=== PATIENT | male | born 1965 | race Caucasian/White ===

== ENCOUNTER 2018-02-26 05:47 | Observation (INO) ==
[2018-02-26] MEDS ORDERED: Ondansetron 4 MG/2 ML VIAL IVP ONE (06:08)
[2018-02-26] MEDS ORDERED: diazePAM 5 MG TABLET PO ONE (06:09)
--- NOTE | 2018-02-26 06:13 | Emergency Department Note ---
Disposition Clinical Impression: Vertigo Hypertension Qualifiers: Hypertension type: unspecified Qualified Code(s): I10 - Essential (primary) hypertension Disposition: Still a Patient Condition: Fair Referrals: Shreya Whitt CNP [Primary Care Provider] - Forms: ED Satisfaction Letter Dizziness HPI - General Chief Complaint: ED Dizziness Stated Complaint: dizziness Time Seen by Provider: 02/26/18 05:51 Source: patient Mode of arrival: ambulatory Limitations: no limitations Nursing Notes Reviewed: Yes Vital Signs Reviewed: Yes - History of Present Illness HPI Narrative: 52-year-old male with a history of CABG, hypertension presents for evaluation of dizziness. Dizziness started upon awakening this morning. Patient noted when he got up he felt like the room is spinning. Symptoms resolved when he lays down. Patient states that he did have some nausea vomiting associated with the dizziness. Patient states that he attempted and related to the bathroom but felt dizzy. Patient denies history of this in the past. Patient denies any fevers. No abdominal pain. Patient denies any focal neurologic weakness. Patient did have isolated hand tingling. Patient denied any chest pain or shortness of breath but states he has had felt shortness of breath the past. Denies any tinnitus/hearing loss. Patient states that he felt well last night. 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 Patient denies any history of strokes. Denies any recent changes in medications. Patient did not take his blood pressure medication earlier today. - Related Data Home Medications Medication Instructions Recorded Confirmed Albuterol Sulfate [Proair Hfa] 2 puff IH Q4H 12/31/15 03/30/16 Aspirin [Adult Low Dose Aspirin EC] 81 mg PO DAILY 12/31/15 03/30/16 Atorvastatin Calcium [Lipitor] 80 mg PO HS 12/31/15 03/30/16 Tamsulosin HCl [Flomax] 0.4 mg PO DAILY 12/31/15 03/30/16 amLODIPine [Norvasc] 5 mg PO DAILY 04/08/16 04/08/16 Allergies Allergy/AdvReac Type Severity Reaction Status Date / Time No Known Allergies Allergy Verified 10/29/15 17:06 All systems ED: reviewed and negative except as stated. Constitutional: Denies: fever Cardiovascular: Denies: chest pain Respiratory: Reports: dyspnea. Denies: cough Gastrointestinal: Reports: nausea, vomiting. Denies: abdominal pain Past Medical History - Past Medical History Source: patient Medical history: Reports: COPD, coronary artery disease, hyperlipidemia, hypertension, myocardial infarction Surgical history: Reports: angioplasty/stent, appendectomy, coronary bypass ( CABG) Psychiatric history: Reports: no psych history - Social History Smoking Status: Former smoker Smokeless Tobacco Status: No Alcohol use: Reports: occasionally Drug use: Reports: none Physical Exam - General Limitations: no limitations - Head Head exam: atraumatic, normocephalic, normal inspection - Eye Eye exam: Present: normal appearance, PERRL, EOMI, other (Horizontal left beating nystagmus.) - ENT ENT exam: normal exam, normal oropharynx, mucous membranes moist - Neck Neck exam: Present: normal inspection - Chest Chest inspection: Present: normal inspection, symmetric chest wall rise - Respiratory Respiratory exam: Present: normal lung sounds bilaterally. Absent: respiratory distress - Cardiovascular Cardiovascular exam: Present: regular rate, normal rhythm. Absent: systolic murmur - Abdominal Exam Abdominal exam: Present: soft, Non-Tender - Extremities Exam Extremities exam: Present: normal inspection. Absent: pedal edema - Back Exam Back exam: Present: normal inspection - Neurological Exam Neurological exam: Present: alert, oriented X3, CN II-XII intact - Expanded Neurological Exam Patient oriented to: Present: person, place, time Speech: Present: fluid speech Cranial nerves: EOM function (II, III, IV, ): Normal, facial sensation (V): Normal, facial palsy (VII): Normal, spinal accessory function (XI): Normal, tongue deviation (XII): Normal Cerebellar function: finger to nose: Normal Motor strength - LUE: 5/5 Motor strength - RUE: 5/5 Motor strength - LLE: 5/5 Motor strength - RLE: 5/5 Upper motor neuron exam: pronator drift: Absent bilaterally Sensory exam upper extremity: light touch: Normal Sensory exam lower extremity: light touch: Normal Coma Scale Eye Opening: Spontaneous Coma Scale Motor Response: Obeys Commands Coma Scale Verbal Response: Oriented Coma Scale Total: 15 - Skin Skin exam: Present: warm, dry, intact, normal color Course Course Narrative: Patient seen and examined. Patient appears be no acute distress. Patient is symptomatic with sitting up. Symptoms resolved when lying down. Patient has a very positional component to his vertigo. Patient has no focal neurologic deficits on exam. Patient will get basic cardiopulmonary screening evaluation with EKG, chest x-ray troponin. Patient also be treated symptomatically with Zofran anti-medics and Valium. Disposition pending. - Reevaluation(s) Reevaluation #1: Patient seen and noted that symptoms still persist with movement. If symptoms continue, patient may need further evaluation with advanced imaging. Time: 07:07 Vital Signs Temperature 97.7 F 02/26/18 05:52 Pulse Rate 55 02/26/18 05:52 Respiratory Rate 14 02/26/18 05:52 Blood Pressure 172/108 02/26/18 05:52 O2 Sat by Pulse Oximetry 100 02/26/18 05:52 Temperature 97.7 F 02/26/18 05:52 Pulse Rate 55 02/26/18 05:52 Respiratory Rate 14 02/26/18 05:52 Blood Pressure 172/108 02/26/18 05:52 O2 Sat by Pulse Oximetry 100 02/26/18 05:52 Oxygen Delivery Oxygen Delivery Room Air Dizziness - Lab Data Result diagrams: 02/26/18 06:10 02/26/18 06:10 Lab Results 02/26/18 02/26/18 Range/Units 06:10 06:10 WBC 6.3 (4.3-11.1) K/mcL RBC 4.54 (4.19-5.50) M/mcL Hgb 13.9 (12.9-16.9) g/dL Hct 41.4 (37.5-50.1) % MCV 91.2 (83.0-100.0) fL MCH 30.6 (28.0-33.3) pg MCHC 33.6 (31.6-35.5) g/dL RDW 11.9 (11.5-14.5) % Plt Count 204 (140-400) K/mcL MPV 9.1 L (9.4-12.4) fL Immature Gran % 0.6 (0-4) % Seg Neutrophils % 60.8 % Lymphocytes % 26.3 % Monocytes % 7.3 % Eosinophils % 4.4 % Basophils % 0.6 % Neutrophils # 3.8 (1.6-8.9) K/mcL Lymphocytes # 1.7 (0.6-4.6) K/mcL Monocytes # 0.5 (0.0-1.3) K/mcL Eosinophils # 0.3 (0.0-0.6) K/mcL Basophils # 0.0 (0.0-0.2) K/mcL Sodium 139 (136-145) mEq/L Potassium 4.3 (3.5-5.1) mEq/L Chloride 105 (98-107) mEq/L Carbon Dioxide 26 (23-29) mEq/L BUN 20 (6-20) mg/dL Creatinine 1.06 (0.70-1.30) mg/dL Est GFR ( Amer) > 60 (> 60) Est GFR (Non-Af Amer) > 60 (> 60) BUN/Creatinine Ratio 19 (6-26) Glucose 99 (70-105) mg/dL Calculated Osmolality 291 (280-300) Calcium 9.4 (8.6-10.3) mg/dL Troponin I < 0.03 (< 0.04) ng/mL - EKG Data EKG attestation: Yes I reviewed and interpreted this EKG. EKG shows normal: sinus rhythm Rate: bradycardia Rhythm: NSR Mission/QRS: normal Interpretation: no acute changes S.B.A.Bryant - Reema.Thomas.Raquel Situation: Demographics Background: Presenting Complaint Assessment: Vital Signs, Course and respsone to treatment, Patient/Family Expectation Recommendation: Barrier(s) to disposition, Recommendation based on pending studies, treatments, or consults S.B.A.Bryant Report Given to: Dr. Julio Arreola Repor Time: 07:00
[2018-02-26 06:23] LABS: Basophils % 0.6 %; Eosinophils # 0.3 K/mcL (0.0-0.6); Eosinophils % 4.4 %; Hematocrit 41.4 % (37.5-50.1); Hemoglobin 13.9 g/dL (12.9-16.9); Immature Granulocytes % 0.6 % (0-4); Lymphocytes # 1.7 K/mcL (0.6-4.6); Lymphocytes % 26.3 %; Mean Corpuscular HGB Conc 33.6 g/dL (31.6-35.5); Mean Corpuscular Hemoglobin 30.6 pg (28.0-33.3); Mean Corpuscular Volume 91.2 fL (83.0-100.0); Mean Platelet Volume 9.1 fL (9.4-12.4); Monocytes # 0.5 K/mcL (0.0-1.3); Monocytes % 7.3 %; Neutrophils # 3.8 K/mcL (1.6-8.9); Platelet Count 204 K/mcL (140-400); Red Blood Count 4.54 M/mcL (4.19-5.50); Red Cell Distribution Width 11.9 % (11.5-14.5); Segmented Neutrophils % 60.8 %
[2018-02-26 06:41] LABS: Troponin I < 0.03 ng/mL (< 0.04)
[2018-02-26 06:47] LABS: BUN/Creatinine Ratio 19 (6-26); Blood Urea Nitrogen 20 mg/dL (6-20); Calcium 9.4 mg/dL (8.6-10.3); Carbon Dioxide 26 mEq/L (23-29); Chloride 105 mEq/L (98-107); Glucose 99 mg/dL (70-105); Osmolality,Calculated 291 (280-300); Potassium 4.3 mEq/L (3.5-5.1); Sodium 139 mEq/L (136-145); eGFR For African Americans > 60 (> 60); eGFR For Non-African Americans > 60 (> 60)
--- NOTE | 2018-02-26 07:14 | Emergency Department Note ---
Disposition Clinical Impression: Vertigo Hypertension Qualifiers: Hypertension type: unspecified Qualified Code(s): I10 - Essential (primary) hypertension Disposition: Still a Patient Condition: Fair Referrals: Shreya Whitt CNP [Primary Care Provider] - Forms: ED Satisfaction Letter General Adult HPI - General Chief complaint: ED Dizziness Stated complaint: dizziness Time Seen by Provider: 02/26/18 05:51 Source: patient Mode of arrival: ambulatory Limitations: no limitations Nursing Notes Reviewed: Yes Vital Signs Reviewed: Yes - History of Present Illness Pain Scale: 0 - Related Data Home Medications Medication Instructions Recorded Confirmed Albuterol Sulfate [Proair Hfa] 2 puff IH Q4H 12/31/15 03/30/16 Aspirin [Adult Low Dose Aspirin EC] 81 mg PO DAILY 12/31/15 03/30/16 Atorvastatin Calcium [Lipitor] 80 mg PO HS 12/31/15 03/30/16 Tamsulosin HCl [Flomax] 0.4 mg PO DAILY 12/31/15 03/30/16 amLODIPine [Norvasc] 5 mg PO DAILY 04/08/16 04/08/16 Allergies Allergy/AdvReac Type Severity Reaction Status Date / Time No Known Allergies Allergy Verified 10/29/15 17:06 Constitutional: Denies: fever Cardiovascular: Denies: chest pain Respiratory: Reports: dyspnea. Denies: cough Gastrointestinal: Reports: nausea, vomiting. Denies: abdominal pain Past Medical History - Past Medical History Medical history: Reports: COPD, coronary artery disease, hyperlipidemia, hypertension, myocardial infarction Surgical history: Reports: angioplasty/stent, appendectomy, coronary bypass ( CABG) Psychiatric history: Reports: no psych history - Social History Smoking Status: Former smoker Smokeless Tobacco Status: No Alcohol use: Reports: occasionally Drug use: Reports: none Physical Exam - General Limitations: no limitations General appearance: alert Course Vital Signs Temperature 97.7 F 02/26/18 05:52 Pulse Rate 55 02/26/18 05:52 Respiratory Rate 14 02/26/18 05:52 Blood Pressure 172/108 02/26/18 05:52 O2 Sat by Pulse Oximetry 100 02/26/18 05:52 Temperature 97.7 F 02/26/18 05:52 Pulse Rate 55 02/26/18 05:52 Respiratory Rate 14 02/26/18 05:52 Blood Pressure 172/108 02/26/18 05:52 O2 Sat by Pulse Oximetry 100 02/26/18 05:52 Oxygen Delivery Oxygen Delivery Room Air Medical Decision Making - Lab Data Result diagrams: 02/26/18 06:10 02/26/18 06:10 Lab Results 02/26/18 02/26/18 Range/Units 06:10 06:10 WBC 6.3 (4.3-11.1) K/mcL RBC 4.54 (4.19-5.50) M/mcL Hgb 13.9 (12.9-16.9) g/dL Hct 41.4 (37.5-50.1) % MCV 91.2 (83.0-100.0) fL MCH 30.6 (28.0-33.3) pg MCHC 33.6 (31.6-35.5) g/dL RDW 11.9 (11.5-14.5) % Plt Count 204 (140-400) K/mcL MPV 9.1 L (9.4-12.4) fL Immature Gran % 0.6 (0-4) % Seg Neutrophils % 60.8 % Lymphocytes % 26.3 % Monocytes % 7.3 % Eosinophils % 4.4 % Basophils % 0.6 % Neutrophils # 3.8 (1.6-8.9) K/mcL Lymphocytes # 1.7 (0.6-4.6) K/mcL Monocytes # 0.5 (0.0-1.3) K/mcL Eosinophils # 0.3 (0.0-0.6) K/mcL Basophils # 0.0 (0.0-0.2) K/mcL Sodium 139 (136-145) mEq/L Potassium 4.3 (3.5-5.1) mEq/L Chloride 105 (98-107) mEq/L Carbon Dioxide 26 (23-29) mEq/L BUN 20 (6-20) mg/dL Creatinine 1.06 (0.70-1.30) mg/dL Est GFR ( Amer) > 60 (> 60) Est GFR (Non-Af Amer) > 60 (> 60) BUN/Creatinine Ratio 19 (6-26) Glucose 99 (70-105) mg/dL Calculated Osmolality 291 (280-300) Calcium 9.4 (8.6-10.3) mg/dL Troponin I < 0.03 (< 0.04) ng/mL Attestation Statement - Attestation Attestation: I, Jared Ovalles MD, personally evaluated this patient and discussed their management with the resident physician. I reviewed the resident's note and agree with the documented findings, medical decision making, and plan of care. 52-year-old male presents to the emergency department with a complaint of dizziness since he awoke this morning. He states he woke up and when he went to get out of bed and everything was spinning and moving and he is soft balance. He had nausea and vomiting. These symptoms have continued since then. Symptoms are worse with sitting up or trying to stand or move around and are improved with lying still with his eyes closed. He denies any headache. No tinnitus. No prior history of similar episodes. On examination patient is a well-developed well-nourished well-appearing male in no acute distress. He is alert and oriented 3. There is no cyanosis or diaphoresis. No nystagmus noted at time of my examination. Neck is supple and nontender with no lymphadenopathy. No meningismus. Breath sounds clear and equal bilaterally. Heart regular rate and rhythm. Abdomen soft and nontender with normal bowel sounds. No gross focal neurological deficits. Labs reviewed and unremarkable. Chest x-ray negative. EKG shows sinus bradycardia with ventricular rate of 56. No ST segment elevation or depression noted. No ectopy. At shift change patient is signed out to the oncoming dayshift team, Dr. Kim and Dr. Eric Painter.
--- NOTE | 2018-02-26 08:37 | Emergency Department Note ---
Disposition Clinical Impression: Vertigo Disposition: Admitted As Inpatient Condition: Fair Time of Disposition: 08:37 General Adult HPI - General Chief complaint: ED Dizziness Stated complaint: dizziness Time Seen by Provider: 02/26/18 05:51 Source: patient Mode of arrival: ambulatory Limitations: no limitations Nursing Notes Reviewed: Yes Vital Signs Reviewed: Yes - History of Present Illness Pain Scale: 0 - Related Data Home Medications Medication Instructions Recorded Confirmed Albuterol Sulfate [Proair Hfa] 2 puff IH Q4H 12/31/15 02/26/18 Atorvastatin Calcium [Lipitor] 80 mg PO HS 12/31/15 02/26/18 Tamsulosin HCl [Flomax] 0.4 mg PO DAILY 12/31/15 02/26/18 Aspirin [Lo-Dose Aspirin EC] 81 mg PO DAILY 02/26/18 02/26/18 Isosorbide MONOnitrate (24 HR) 60 mg PO DAILY 02/26/18 02/26/18 [Imdur] Losartan Potassium [Cozaar] 100 mg PO DAILY 02/26/18 02/26/18 Allergies Allergy/AdvReac Type Severity Reaction Status Date / Time No Known Allergies Allergy Verified 02/26/18 09:14 Constitutional: Denies: fever Cardiovascular: Denies: chest pain Respiratory: Reports: dyspnea. Denies: cough Gastrointestinal: Reports: nausea, vomiting. Denies: abdominal pain Past Medical History - Past Medical History Medical history: Reports: COPD, coronary artery disease, hyperlipidemia, hypertension, myocardial infarction Surgical history: Reports: angioplasty/stent, appendectomy, coronary bypass ( CABG) Psychiatric history: Reports: no psych history - Social History Smoking Status: Former smoker Smokeless Tobacco Status: No Alcohol use: Reports: occasionally Drug use: Reports: none Physical Exam - General Limitations: no limitations General appearance: alert Course Course Narrative: Patient transferred to our team's care in sign out. The patient is a 52-year- old male the past medical history of [place] presents with complaint of dizziness that started at 5 AM this morning upon awakening. The patient states that since awakening experiencing room spinning around him vertigo-like dizziness. He has had mild improvement with the medications given today. Given his atypical symptoms and not complete resolution with medicine plan at this time is admitted to the hospital with a consult to neurology for MRI and further workup of his symptoms. Discussed these plans with the patient and he agrees. Vital Signs Temperature 97.7 F 02/26/18 05:52 Pulse Rate 55 02/26/18 05:52 Respiratory Rate 14 02/26/18 05:52 Blood Pressure 172/108 02/26/18 05:52 O2 Sat by Pulse Oximetry 100 02/26/18 05:52 Temperature 98.0 F 02/26/18 10:26 Pulse Rate 60 02/26/18 10:26 Respiratory Rate 18 02/26/18 10:26 Blood Pressure 143/86 02/26/18 10:26 O2 Sat by Pulse Oximetry 98 02/26/18 10:26 Oxygen Delivery Oxygen Delivery Room Air Medical Decision Making - Medical Records Medical records reviewed: Yes I reviewed the patient's medical records. - Lab Data Lab results reviewed: Yes I reviewed the patient's lab results. Result diagrams: 02/26/18 06:10 02/26/18 06:10 Lab Results 02/26/18 02/26/18 Range/Units 06:10 06:10 WBC 6.3 (4.3-11.1) K/mcL RBC 4.54 (4.19-5.50) M/mcL Hgb 13.9 (12.9-16.9) g/dL Hct 41.4 (37.5-50.1) % MCV 91.2 (83.0-100.0) fL MCH 30.6 (28.0-33.3) pg MCHC 33.6 (31.6-35.5) g/dL RDW 11.9 (11.5-14.5) % Plt Count 204 (140-400) K/mcL MPV 9.1 L (9.4-12.4) fL Immature Gran % 0.6 (0-4) % Seg Neutrophils % 60.8 % Lymphocytes % 26.3 % Monocytes % 7.3 % Eosinophils % 4.4 % Basophils % 0.6 % Neutrophils # 3.8 (1.6-8.9) K/mcL Lymphocytes # 1.7 (0.6-4.6) K/mcL Monocytes # 0.5 (0.0-1.3) K/mcL Eosinophils # 0.3 (0.0-0.6) K/mcL Basophils # 0.0 (0.0-0.2) K/mcL Sodium 139 (136-145) mEq/L Potassium 4.3 (3.5-5.1) mEq/L Chloride 105 (98-107) mEq/L Carbon Dioxide 26 (23-29) mEq/L BUN 20 (6-20) mg/dL Creatinine 1.06 (0.70-1.30) mg/dL Est GFR ( Amer) > 60 (> 60) Est GFR (Non-Af Amer) > 60 (> 60) BUN/Creatinine Ratio 19 (6-26) Glucose 99 (70-105) mg/dL Calculated Osmolality 291 (280-300) Calcium 9.4 (8.6-10.3) mg/dL Troponin I < 0.03 (< 0.04) ng/mL - Radiology Data Radiology results reviewed: Yes I reviewed the patient's radiology results. Chest X-Ray 02/26/18 06:08 IMPRESSION: Negative portable chest. D/ / Shant Carbajal MD / Shant Carbajal MD Interpreting Provider: Shant Carbajal MD Brain MRI 02/26/18 08:18 IMPRESSION: Cerebral atrophy. Mild chronic small vessel ischemic changes. There are no areas of restricted diffusion to suggest an acute ischemic event. D/ / 02/26/2018 11:29:46 Mague Kamara MD / rani Interpreting Provider: Mague Kamara MD S.BCarmelo - S.B.A.RDevonte Situation: Demographics, MOA Background: Presenting Complaint, Relevant PMH, Meds, & Allergies Assessment: Vital Signs, Course and respsone to treatment, Exam Concerns, Patient/Family Expectation, Pertinant Lab Results, Outstanding Labs Recommendation: Barrier(s) to disposition, Recommendation based on pending studies, treatments, or consults S.B.A.R. Report Given to: Dr. Kim and Dr. Painter SArleth Repor Time: 11:48 Attestation Statement - Attestation Attestation: I, Eric Painter, examined this patient and my medical decision-making was reviewed with the REGIONAL EDUCATION COORDINATOR/PA/Advanced Practice Nurse/Resident Physician. I agree with the documented findings, disposition and treatment plan as described except to the extent set forth below. 52-year-old male presents emergency Department with concerns of vertigo. Patient was received in sign out at 7 AM pending reevaluation and disposition. Patient states his symptoms have been constant since their onset this morning. He reports left upper extremity paresthesias and weakness. Patient has no focal neurologic deficits on examination emergency department. No history of similar symptoms in the past. Patient will be admitted to hospitalist for further care and evaluation of possible central causes of vertigo. Patient comfortable with this plan of action.
[2018-02-26] MEDS ORDERED: diazePAM 2 MG TABLET PO PRN (11:50)
--- NOTE | 2018-02-26 13:11 | Neurology - Consult Note ---
Date of Encounter: 02/26/18 Time of Encounter: 13:05 Assessment and Plan (1) Vertigo Current Visit: Yes Status: Acute Patient developed acute onset of vertigo lasting few hours in duration with transient nausea with full resolution, in the setting of elevated blood pressure , patient has no hearing loss, no tinnitus or other otologic symptoms and his neurological examination is normal. In particular, he has no nystagmus and no hearing difficulty. Therefore would think that his symptoms are mostly related elevated BP. he does have increased risk of cerebral vascular events due to HTN , SHEREE, obesity and i would recommend CTA of neck and head to evaluate posterior circulation TIA. echo and carotid artery duplex. Agree with Aspirn 81mg daily and statin therapy. Patient has recent diagnosis of SHEREE and is waiting to start CPAP therapy. Total time spent in this case is approximately 50 minutes History of Present Illness Chief complaint: Dizziness HPI: Mr. John is a 52 year old male with PMH significant for HTN, CAD, obesity and sleep apnea who developed an acute episode of dizziness, nausea and balance difficulty. Patient states that this morning he woke up early suppose to go to work at 5am when he got up he felt vertiginous and had to go back lay done. He tried few times to get up walking and he could not because he balance was off. He also felt slightly nauseated in the beginning. took his blood pressure and it was above 150/100' which is not normal for him. Usually the BP is in 110' s/80's. The dizziness persisted for about few hours and at the ER he was given Meclizine and then the dizziness finally resolved. Now he feels much better and back to baseline. First episode of this type. He denies tinnitus, hearing loss MRI of brain completed and showed no acute intracranial abnormality. Past Med Surg Social Fam HX - Past Medical History Medical history: COPD, coronary artery disease, hyperlipidemia, hypertension, myocardial infarction Psychiatric history: no psych history - Past Surgical History Surgical History: angioplasty/stent, appendectomy, coronary bypass (CABG) Additional surgical history: CABG 01/03 - Social History Smoking Status: Former smoker Smokeless Tobacco Status: No Alcohol use: occasionally Drug use: none - Family History Father Living Status: Still Living Hx Family Cardiac Disorders: Yes (father,mother,self) Hx Family Respiratory Disorders: Yes (self) Hx Family Cancer: No Hx Family GI Disorders: No Hx Family Endocrine Disorder: No Hx Family Neuromuscular Disorders: Yes (mother) Hx Family Neurologic Disorders: Yes (mother) Hx Family HEENT Disorders: No Hx Family Autoimmune Disorders: No Medications and Allergies Albuterol Sulfate [Proair Hfa] 2 puff IH Q4H 12/31/15 [History] Atorvastatin Calcium [Lipitor] 80 mg PO HS 12/31/15 [History] Tamsulosin HCl [Flomax] 0.4 mg PO DAILY 12/31/15 [History] Aspirin [Lo-Dose Aspirin EC] 81 mg PO DAILY 02/26/18 [History] Isosorbide MONOnitrate (24 HR) [Imdur] 60 mg PO DAILY 02/26/18 [History] Losartan Potassium [Cozaar] 100 mg PO DAILY 02/26/18 [History] 3 Allergy/AdvReac Type Severity Reaction Status Date / Time No Known Allergies Allergy Verified 02/26/18 09:14 All Systems: The remainder of the systems were reviewed and are negative Physical Examination - Vital Signs Vital Signs: Initial Vital Signs Temp Pulse Resp BP Pulse Ox 97.7 F 55 14 172/108 100 02/26/18 05:52 02/26/18 05:52 02/26/18 05:52 02/26/18 05:52 02/26/18 05:52 - Constitutional General appearance: comfortable - Neurologic Detailed motor examination: full strength in all major muscle groups Motor examination - right side: 5/5: deltoids, biceps, triceps, wrist flexion, wrist extension, box tender, hip flexors, tibialis Anterior, quadriceps, toe extension (EHL), plantarflexion Motor examination - left side: 5/5: deltoids, biceps, triceps, wrist flexion, wrist extension, hip flexors, box tender, quadriceps, tibialis Anterior, toe extension (EHL), plantarflexion Mental Status Examination: awake, alert, oriented to person, oriented to place, oriented to time, follows commands appropriately, answers questions appropriately, no agnosia, no aphasia, no aproxia Cranial nerve examination: PERRL, EOMI, visual [place] intact, corneal reflexes brisk symmetrically, sensory to face intact, mastication intact, no facial asymmetry is present, no dysarthria, hearing is intact symmetrically, soft palate elevates bilaterally upon phonation, gag reflex intact, flexes SCM and trapezius muscles symmetrically with full power, tongue protrudes midline, no atrophy or facial fasiculations present Cerebellar examination: no dysmetria, performs finger to nose and heel to clark symmetrically without ataxia, no gait ataxia, no truncal ataxia, no difficulty with rapid alternating movements Results - Laboratory Findings CBC and BMP: 02/26/18 06:10 02/26/18 06:10 Abnormal lab findings: Abnormal lab results MPV 9.1 fL (9.4-12.4) L 02/26/18 06:10 Consult Discharge Plan - Plan Referrals: Shreya Whitt, [facility] [Primary Care Provider] -
[2018-02-26] MEDS ORDERED: Isovue-370 500 ML INFUS..BTL IV ONE (13:17)
--- NOTE | 2018-02-26 18:27 | Internal Med History&Physical ---
Date of Encounter: 02/26/18 Time of Encounter: 11:00 Internal Medicine - H&P: HPI Admitted From: Home Plans for Post Hospital Care: Home History of present illness: Mr. John is a 52 year old male.He has had underlying Coronary artery disease, hypertension, hyperlipidemia, COPD and BPH. His alarm clock woke him as usually has 4 AM. After getting up he noticed severe "spinning"; has extreme difficulty walking. Those symptoms forced him back to his bed. A little bit later he vomited twice. He had a lot of "spinning", when moving his head to sides; also when he is eyes were moving to sides. He continued to be symptomatic in the emergency room. They gave him 25 mg of oral meclizine. His symptoms basically subsided by 11 AM. His coronary artery disease and hypertension seem to be under good control. Past Med Surg Social Fam HX - Past Medical History Medical history: COPD, coronary artery disease, hyperlipidemia, hypertension, myocardial infarction Additional medical history: BPH. Psychiatric history: no psych history - Past Surgical History Surgical History: angioplasty/stent, appendectomy, coronary bypass (CABG) Additional surgical history: CABG 01/03 - Social History Smoking Status: Former smoker Smokeless Tobacco Status: No Alcohol use: occasionally Drug use: none - Family History Father Living Status: Still Living Hx Family Cardiac Disorders: Yes (father,mother,self) Hx Family Respiratory Disorders: Yes (self) Hx Family Cancer: No Hx Family GI Disorders: No Hx Family Endocrine Disorder: No Hx Family Neuromuscular Disorders: Yes (mother) Hx Family Neurologic Disorders: Yes (mother) Hx Family HEENT Disorders: No Hx Family Autoimmune Disorders: No Internal Medicine - H&P: Meds Albuterol Sulfate [Proair Hfa] 2 puff IH Q4H 12/31/15 [History] Atorvastatin Calcium [Lipitor] 80 mg PO HS 12/31/15 [History] Tamsulosin HCl [Flomax] 0.4 mg PO DAILY 12/31/15 [History] Aspirin [Lo-Dose Aspirin EC] 81 mg PO DAILY 02/26/18 [History] Isosorbide MONOnitrate (24 HR) [Imdur] 60 mg PO DAILY 02/26/18 [History] Losartan Potassium [Cozaar] 100 mg PO DAILY 02/26/18 [History] 3 Allergy/AdvReac Type Severity Reaction Status Date / Time No Known Allergies Allergy Verified 02/26/18 09:14 All Systems PM: A 10-system review of systems was performed and is negative for pertinent findings except as documented above in the HPI. - Constitutional Vitals: Temp Pulse Resp BP Pulse Ox 98.0 F 58 18 115/73 98 02/26/18 17:14 02/26/18 17:14 02/26/18 17:14 02/26/18 17:14 02/26/18 17:14 General appearance: Present: A&O X 3, no acute distress, answers questions appropriately - Eye Eye exam: Present: normal appearance. Absent: conjunctival injection, periorbital swelling, scleral icterus - ENT ENT exam: Present: mucous membranes moist, normal external ear exam, normal oropharynx - Respiratory Respiratory exam: Present: CTAB. Absent: accessory muscle use, rales, rhonchi, wheezes - Cardiovascular Cardiovascular exam: Present: RRR, +S1, +S2. Absent: diastolic murmur, gallop, rubs, systolic murmur - GI/Abdominal GI/Abdominal exam: Present: normal bowel sounds, soft, no peritoneal signs. Absent: distended, tenderness - Neurological Exam Neurological exam: Present: CN II-XII intact, oriented X3, no focal deficits. Absent: pronater drift, facial droop, speech deficit - Skin Skin exam: Present: dry, intact Internal Med - H&P Results - Labs CBC & Chem 7: 02/26/18 06:10 02/26/18 06:10 - Impressions ITS Impressions Head CTA 02/26/18 13:17 IMPRESSION: 1. No acute intracranial abnormality. 2. 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 In addition there is circulation of the left [employer] D/ / 02/26/2018 14:32:31 Filipe Hurt MD / [facility] Interpreting Provider: Filipe Hurt MD Neck CTA 02/26/18 13:17 IMPRESSION: Mild atherosclerosis involving both proximal internal carotid arteries without hemodynamically significant stenosis. Hypoplastic right vertebral artery. 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 It subsided by 11 AM; received 25 mg of meclizine in emergency department. See below. (2) Acute viral labyrinthitis Current Visit: Yes Status: Acute Assessment and plan: This could be acute viral labyrinthitis. It got better after 25 mg of oral meclizine.MRI of brain is normal. My neurological exam did not reveal any abnormalities. We will keep him on oral meclizine at 25 mg 3 times a day. Will likely discharge him home tomorrow before 11 AM. Qualifiers: Laterality: unspecified laterality Qualified Code(s): H83.09 - Labyrinthitis, unspecified ear (3) CAD (coronary artery disease) Current Visit: Yes Status: Chronic Assessment and plan: It seems to be under control. We will continue him to Lipitor and enteric- coated aspirin. I will talk to him about beta blockers tomorrow at the time of discharge. Qualifiers: Coronary Disease-Associated Artery/Lesion type: [place] artery [place] vs. transplanted heart: [place] heart Associated angina: with unstable angina Qualified Code(s): I25.110 - Atherosclerotic heart disease of [place] coronary artery with unstable angina pectoris (4) HTN (hypertension) Current Visit: Yes Status: Chronic Assessment and plan: Seems to be under fair control. We will continue Cozaar. His checked his blood pressure and heart rate, when he was symptomatic. His systolic blood pressure was 154. His blood pressure from 10:26 AM is 143/86. Qualifiers: Hypertension type: essential hypertension Qualified Code(s): I10 - Essential (primary) hypertension - Time Spent With Patient Total time spent is greater than 50% in coordination of care (as documented) at patient's floor/unit and/or counseling patient: Greater than 35 minutes (40 minutes.)
[2018-02-27 03:36] LABS: Hematocrit 37.8 % (37.5-50.1); Hemoglobin 12.6 g/dL (12.9-16.9); Mean Corpuscular HGB Conc 33.3 g/dL (31.6-35.5); Mean Corpuscular Hemoglobin 30.3 pg (28.0-33.3); Mean Corpuscular Volume 90.9 fL (83.0-100.0); Mean Platelet Volume 9.2 fL (9.4-12.4); Platelet Count 171 K/mcL (140-400); Red Blood Count 4.16 M/mcL (4.19-5.50)
[2018-02-27 03:58] LABS: BUN/Creatinine Ratio 16 (6-26); Blood Urea Nitrogen 17 mg/dL (6-20); Calcium 8.6 mg/dL (8.6-10.3); Carbon Dioxide 29 mEq/L (23-29); Chloride 106 mEq/L (98-107); Glucose 98 mg/dL (70-105); Osmolality,Calculated 292 (280-300); Sodium 140 mEq/L (136-145); eGFR For African Americans > 60 (> 60); eGFR For Non-African Americans > 60 (> 60)
[2018-02-27] MEDS ORDERED: Isosorbide MONOnitrate (24 HR) 60 MG TAB.ER.24H PO SCH (09:00)
[2018-02-27] MEDS ORDERED: Aspirin Enteric Coated 81 MG Tablet PO SCH (09:00)
[2018-02-27 10:48] VITALS: BP 114/72
--- NOTE | 2018-02-27 15:15 | Discharge Summary ---
- NOTES TO OUTPATIENT PROVIDER Notes to Outpatient Provider: Pt was admitted for dizziness, n/v, vertigo that resolved with Meclizine in the ER. Pt was admitted for workup and left AmA, states that he had too much to do at home. He did not receive echo or carotid doppler results, nor did he receive his rx for Meclizine. Date of Encounter: 02/27/18 Time of Encounter: 09:45 - Discharge Diagnosis (1) Acute viral labyrinthitis Priority: Secondary Status: Suspected Assessment and Plan: Pt reports recent allergy symptoms with cough, URI symptoms. Viral etiology could contribute to dizziness, nausea, vomiting. Qualifiers: Laterality: unspecified laterality Qualified Code(s): H83.09 - Labyrinthitis, unspecified ear (2) Vertigo Priority: Secondary Status: Acute Assessment and Plan: Onset at 4 AM when patient comes to the bathroom. States that he did not make it to the bathroom without becoming dizzy, went back to bed. He came diaphoretic and vomited twice. Symptoms resolved approximately 7-8 hours later he was given meclizine in the emergency department. Physical exam is unremarkable, he has no neurological deficits. Patient had carotid Dopplers and echocardiogram done, however did not stay to find out the results. Patient signed out AGAINST MEDICAL ADVICE he did not receive a prescription for meclizine. Pt had also requested prescriptions for Claritin and Flonase for seasonal allergies which have become significantly worse over the last 3-4 weeks. Carotid Doppler showed nonstenotic plaque only in bilateral carotids. Echocardiogram showed an LVEF of 6060% with no evidence of PFO. Normal wall segment motion. Likely viral in etiology. (3) CAD (coronary artery disease) Priority: Secondary Status: Chronic Assessment and Plan: Chronic. Patient denied chest pain. Continue home medications after discharge. Qualifiers: Coronary Disease-Associated Artery/Lesion type: [place] artery [place] vs. transplanted heart: [place] heart Associated angina: with unstable angina Qualified Code(s): I25.110 - Atherosclerotic heart disease of [place] coronary artery with unstable angina pectoris (4) HTN (hypertension) Priority: Secondary Status: Chronic Assessment and Plan: Chronic. Continue home medications. Qualifiers: Hypertension type: essential hypertension Qualified Code(s): I10 - Essential (primary) hypertension Hospital course: Mr. John is a 52 year old male with past medical history of coronary artery disease and hypertension. Patient was admitted for dizziness, nausea, vomiting , diaphoresis. Chest x-ray was negative, brain MRI was negative for acute, there is some cerebral atrophy and mild chronic small vessel ischemic changes. Around that showed nonstenotic plaque bilaterally. CTA head shows no acute abnormality of the neck CTA shows mild atherosclerosis involving both proximal internal carotid arteries without hemodynamically significant stenosis. Also noted is hypoplastic right vertebral artery. She also had a limited echocardiogram showed an LVEF of 60-65% with no evidence of PFO, all wall segments showed normal motion. Patient told me that he was not willing to stay, he had too many things to do. He did not stay to get echocardiogram results. Patient signed out AGAINST MEDICAL ADVICE, he did not receive any prescriptions. Discharge discussed with: patient - Time Spent with Patient Total time spent providing and/or coordinating discharge services: Less than 30 minutes - Discharge Medications Home Medications: Albuterol Sulfate [Proair Hfa] 2 puff IH Q4H 12/31/15 [History] Atorvastatin Calcium [Lipitor] 80 mg PO HS 12/31/15 [History] Tamsulosin HCl [Flomax] 0.4 mg PO DAILY 12/31/15 [History] Aspirin [Lo-Dose Aspirin EC] 81 mg PO DAILY 02/26/18 [History] Isosorbide MONOnitrate (24 HR) [Imdur] 60 mg PO DAILY 02/26/18 [History] Losartan Potassium [Cozaar] 100 mg PO DAILY 02/26/18 [History] Allergies/Adverse Reactions: 3 Allergy/AdvReac Type Severity Reaction Status Date / Time No Known Allergies Allergy Verified 02/26/18 09:14 Date of admission: 02/26/18 08:43 Primary care physician: Shreya Whitt, [facility] [employer] Discharging clinician: Kat Valverde Anticipated date of discharge: 02/27/18 - Constitutional Vitals: Temp Pulse Resp BP Pulse Ox 98.5 F 50 16 114/72 95 02/27/18 10:47 02/27/18 10:47 02/27/18 11:46 02/27/18 10:47 02/27/18 11:46 General appearance: Present: cooperative, A&O X 3, pleasant, no acute distress, answers questions appropriately - Head Head exam: Present: atraumatic, normal inspection, normocephalic - Eye Eye exam: Present: EOMI, normal appearance, conjuntiva pink, sclera anicteric. Absent: nystagmus - Neck Neck exam general surgery: Present: supple, trachea midline. Absent: lymphadenopathy, tenderness - Respiratory Respiratory exam: Present: CTAB. Absent: accessory muscle use, rales, respiratory distress, rhonchi, wheezes - Cardiovascular Cardiovascular exam: Present: RRR, +S1, +S2. Absent: diastolic murmur, gallop, rubs, systolic murmur - GI/Abdominal GI/Abdominal exam: Present: normal bowel sounds, soft, no peritoneal signs. Absent: distended, hepatomegaly, tenderness - Extremities Exam Extremities exam: Present: normal capillary refill, normal inspection, warm, radial pulses palpable and symmetrical. Absent: calf tenderness, cyanotic, pedal edema, tenderness - Neurological Exam Neurological exam: Present: alert, oriented X3, no focal deficits, strengths equal and symetr throughout. Absent: facial droop, speech deficit - Skin Skin exam: Present: dry, intact, normal color, warm. Absent: rash - Patient Status Disposition: Left Against Medical Advice Condition: Good Functional capacity at discharge: independent ambulation Overall status at discharge: other - Discharge Instructions Follow Up With: Shreya Whitt [facility] [employer] [Primary Care Provider] - - VTE Reasons for not Prescribing Prophylaxis: Treatment not Indicated - Low risk for VTE Deep Vein Thrombosis/Pulmonary Embolism Present on Admission: No
--- NOTE | 2018-02-28 15:24 | Electrocardiograph Report ---
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
== END 2018-02-27 12:00 | disposition left against medical advice (07) ==
LOC: EMEROO 05:47 → 3BNU 05:47
PROVIDERS: ADMIT Internal Medicine; ATTEND Internal Medicine